=== PATIENT | male | born 1960 | race Caucasian/White ===

== ENCOUNTER 2020-03-06 14:12 | Outpatient (CLI) | payer OTHER, SELFPAY | END 2020-03-06 14:13 | disposition home or self-care (01) | LOC: WOUND 14:20 | PROVIDERS: Visit Provider Thoracic Surgery (Cardiothoracic Vascular Surgery) | DX: N30.40 Irradiation cystitis without hematuria (principal); Y84.2 Radiological procedure and radiotherapy as the cause of abnormal reaction of the patient, or of later complication, without mention of misadventure at the time of the procedure; Y92.9 Unspecified place or not applicable | CPT/HCPCS: 99212 ==

== ENCOUNTER 2020-03-06 16:01 | Outpatient (CLI) | payer OTHER, SELFPAY ==
--- NOTE | 2020-03-06 16:12 | XR_ITS ---
WS: [id number] CHEST XRAY TECHNIQUE: Portable chest. CLINICAL INFORMATION: ENCOUNTER FOR SCREENING FOR RESPIRATORY DISORDERS COMPARISON: None. FINDINGS: Heart: Normal cardiac silhouette. Lungs: Lungs are clear. No consolidation or pleural effusion. No evidence of bulla formation. Bones: Normal visualized bony structures. XR/XR chest 1V [id number] IMPRESSION: Lungs are well aerated. No evidence of bulla formation.
--- NOTE | 2020-03-06 17:09 | ECG_ITS ---
[facility] Test Date: 2020-03-06 Pat Name: Gregor Viveros Department: Room: Gender: Male Campus Aide: : 1960 Requested By: Juvencio Royal Order Number: [id number] Berny MD: Elvia Mendoza M.D. Measurements Intervals [place] Rate: 58 P: 39 DC: 145 QRS: 18 QRSD: 91 T: 40 QT: 405 QTc: 398 Interpretive Statements SINUS BRADYCARDIA No previous ECG available for comparison Electronically Signed On 03-06-2020 20:24:44 [employer] PROVIDER by Elvia Mendoza M.D. [email or web address]
== END 2020-03-06 16:02 | disposition home or self-care (01) ==
LOC: RAD 16:08
PROVIDERS: Visit Provider Thoracic Surgery (Cardiothoracic Vascular Surgery)
DX: Z13.6 Encounter for screening for cardiovascular disorders (principal); Z13.83 Encounter for screening for respiratory disorder NEC
CPT/HCPCS: 71045; 93005

== ENCOUNTER 2020-03-08 13:06 | Outpatient (CLI) | payer OTHER, SELFPAY | END 2020-03-08 13:07 | disposition home or self-care (01) | LOC: WOUND 13:07 | PROVIDERS: Visit Provider Thoracic Surgery (Cardiothoracic Vascular Surgery) | DX: N30.80 Other cystitis without hematuria (principal) | CPT/HCPCS: G0277 ==

== ENCOUNTER 2020-03-09 13:05 | Outpatient (CLI) | payer OTHER, SELFPAY | END 2020-03-09 13:06 | disposition home or self-care (01) | LOC: WOUND 13:06 | PROVIDERS: Visit Provider Thoracic Surgery (Cardiothoracic Vascular Surgery) | DX: N30.41 Irradiation cystitis with hematuria (principal) | CPT/HCPCS: G0277 ==

== ENCOUNTER 2020-03-10 13:00 | Outpatient (CLI) | payer OTHER, SELFPAY | END 2020-03-10 13:01 | disposition home or self-care (01) | LOC: WOUND 13:00 | PROVIDERS: Visit Provider Surgery | DX: N30.41 Irradiation cystitis with hematuria (principal) | CPT/HCPCS: G0277 ==

== ENCOUNTER 2020-03-13 13:02 | Outpatient (CLI) | payer OTHER, SELFPAY | END 2020-03-13 13:03 | disposition home or self-care (01) | LOC: WOUND 13:02 | PROVIDERS: Visit Provider Nurse Practitioner Family | DX: N30.41 Irradiation cystitis with hematuria (principal) | CPT/HCPCS: G0277 ==

== ENCOUNTER 2020-03-14 13:05 | Outpatient (CLI) | payer OTHER, SELFPAY | END 2020-03-14 13:06 | disposition home or self-care (01) | LOC: WOUND 13:05 | PROVIDERS: Visit Provider Thoracic Surgery (Cardiothoracic Vascular Surgery) | DX: N30.41 Irradiation cystitis with hematuria (principal) | CPT/HCPCS: G0277 ==

== ENCOUNTER 2020-03-15 13:00 | Outpatient (CLI) | payer OTHER, SELFPAY | END 2020-03-15 13:01 | disposition home or self-care (01) | LOC: WOUND 13:02 | PROVIDERS: Visit Provider Thoracic Surgery (Cardiothoracic Vascular Surgery) | DX: N30.41 Irradiation cystitis with hematuria (principal) | CPT/HCPCS: G0277 ==

== ENCOUNTER 2020-03-16 13:01 | Outpatient (CLI) | payer OTHER, SELFPAY | END 2020-03-16 13:02 | disposition home or self-care (01) | LOC: WOUND 13:02 | PROVIDERS: Visit Provider Thoracic Surgery (Cardiothoracic Vascular Surgery) | DX: N30.41 Irradiation cystitis with hematuria (principal) | CPT/HCPCS: G0277 ==

== ENCOUNTER 2020-03-17 13:06 | Outpatient (CLI) | payer OTHER, SELFPAY | END 2020-03-17 13:07 | disposition home or self-care (01) | LOC: WOUND 13:06 | PROVIDERS: Visit Provider Surgery | DX: N30.41 Irradiation cystitis with hematuria (principal) | CPT/HCPCS: G0277 ==

== ENCOUNTER 2020-03-20 13:06 | Outpatient (CLI) | payer OTHER, SELFPAY | END 2020-03-20 13:07 | disposition home or self-care (01) | PROVIDERS: Visit Provider Thoracic Surgery (Cardiothoracic Vascular Surgery) | DX: N30.41 Irradiation cystitis with hematuria (principal) | CPT/HCPCS: G0277 ==

== ENCOUNTER 2020-03-21 12:58 | Outpatient (CLI) | payer OTHER, SELFPAY | END 2020-03-21 12:59 | disposition home or self-care (01) | LOC: WOUND 12:58 | PROVIDERS: Visit Provider Thoracic Surgery (Cardiothoracic Vascular Surgery) | DX: N30.41 Irradiation cystitis with hematuria (principal) | CPT/HCPCS: G0277 ==

== ENCOUNTER 2020-03-22 13:05 | Outpatient (CLI) | payer OTHER, SELFPAY | END 2020-03-22 13:06 | disposition home or self-care (01) | LOC: WOUND 13:05 | PROVIDERS: Visit Provider Thoracic Surgery (Cardiothoracic Vascular Surgery) | DX: N30.41 Irradiation cystitis with hematuria (principal) | CPT/HCPCS: G0277 ==

== ENCOUNTER 2020-03-23 13:00 | Outpatient (CLI) | payer OTHER, SELFPAY | END 2020-03-23 13:01 | disposition home or self-care (01) | LOC: WOUND 13:01 | PROVIDERS: Visit Provider Thoracic Surgery (Cardiothoracic Vascular Surgery) | DX: N30.41 Irradiation cystitis with hematuria (principal) | CPT/HCPCS: G0277 ==

== ENCOUNTER 2020-03-24 13:12 | Outpatient (CLI) | payer OTHER, SELFPAY | END 2020-03-24 13:13 | disposition home or self-care (01) | LOC: WOUND 13:12 | PROVIDERS: Visit Provider Surgery | DX: N30.41 Irradiation cystitis with hematuria (principal) | CPT/HCPCS: G0277 ==

== ENCOUNTER 2020-03-28 13:02 | Outpatient (CLI) | payer OTHER, SELFPAY | END 2020-03-28 13:03 | disposition home or self-care (01) | LOC: WOUND 13:02 | PROVIDERS: Visit Provider Thoracic Surgery (Cardiothoracic Vascular Surgery) | DX: N30.41 Irradiation cystitis with hematuria (principal) | CPT/HCPCS: G0277 ==

== ENCOUNTER 2020-03-29 13:15 | Outpatient (CLI) | payer OTHER, SELFPAY | END 2020-03-29 13:16 | disposition home or self-care (01) | LOC: WOUND 13:16 | PROVIDERS: Visit Provider Thoracic Surgery (Cardiothoracic Vascular Surgery) | DX: N30.41 Irradiation cystitis with hematuria (principal) | CPT/HCPCS: G0277 ==

== ENCOUNTER 2020-03-30 13:11 | Outpatient (CLI) | payer OTHER, SELFPAY | END 2020-03-30 13:12 | disposition home or self-care (01) | LOC: WOUND 13:11 | PROVIDERS: Visit Provider Nurse Practitioner Family | DX: N30.41 Irradiation cystitis with hematuria (principal) | CPT/HCPCS: G0277 ==

== ENCOUNTER 2020-03-31 13:02 | Outpatient (CLI) | payer OTHER, SELFPAY | END 2020-03-31 13:03 | disposition home or self-care (01) | LOC: WOUND 13:02 | PROVIDERS: Visit Provider Surgery | DX: N30.41 Irradiation cystitis with hematuria (principal) | CPT/HCPCS: G0277 ==

== ENCOUNTER 2020-04-03 13:01 | Outpatient (CLI) | payer OTHER, SELFPAY | END 2020-04-03 13:02 | disposition home or self-care (01) | LOC: WOUND 13:01 | PROVIDERS: Visit Provider Nurse Practitioner Family | DX: N30.41 Irradiation cystitis with hematuria (principal) | CPT/HCPCS: G0277 ==

== ENCOUNTER 2020-04-04 13:04 | Outpatient (CLI) | payer OTHER, SELFPAY | END 2020-04-04 13:05 | disposition home or self-care (01) | PROVIDERS: Visit Provider Thoracic Surgery (Cardiothoracic Vascular Surgery) | DX: N30.41 Irradiation cystitis with hematuria (principal) | CPT/HCPCS: G0277 ==

== ENCOUNTER 2020-04-06 13:09 | Outpatient (CLI) | payer OTHER, SELFPAY | END 2020-04-06 13:10 | disposition home or self-care (01) | LOC: WOUND 13:09 | PROVIDERS: Visit Provider Nurse Practitioner Family | DX: N30.41 Irradiation cystitis with hematuria (principal) | CPT/HCPCS: G0277 ==

== ENCOUNTER 2020-04-07 13:00 | Outpatient (CLI) | payer OTHER, SELFPAY | END 2020-04-07 13:01 | disposition home or self-care (01) | LOC: WOUND 13:01 | PROVIDERS: Visit Provider Surgery | DX: N30.41 Irradiation cystitis with hematuria (principal) | CPT/HCPCS: G0277 ==

== ENCOUNTER 2020-04-11 13:06 | Outpatient (CLI) | payer OTHER, SELFPAY | END 2020-04-11 13:07 | disposition home or self-care (01) | LOC: WOUND 13:07 | PROVIDERS: Visit Provider Thoracic Surgery (Cardiothoracic Vascular Surgery) | DX: N30.41 Irradiation cystitis with hematuria (principal) | CPT/HCPCS: G0277 ==

== ENCOUNTER 2020-04-13 13:06 | Outpatient (CLI) | payer OTHER, SELFPAY | END 2020-04-13 13:07 | disposition home or self-care (01) | LOC: WOUND 13:08 | PROVIDERS: Visit Provider Nurse Practitioner Family | DX: N30.41 Irradiation cystitis with hematuria (principal) | CPT/HCPCS: G0277 ==

== ENCOUNTER 2020-04-14 13:03 | Outpatient (CLI) | payer OTHER, SELFPAY | END 2020-04-14 13:04 | disposition home or self-care (01) | LOC: WOUND 13:04 | PROVIDERS: Visit Provider Surgery | DX: N30.41 Irradiation cystitis with hematuria (principal) | CPT/HCPCS: G0277 ==

== ENCOUNTER 2020-04-18 13:08 | Outpatient (CLI) | payer OTHER, SELFPAY | END 2020-04-18 13:09 | disposition home or self-care (01) | LOC: WOUND 13:08 | PROVIDERS: Visit Provider Nurse Practitioner Family | DX: N30.41 Irradiation cystitis with hematuria (principal) | CPT/HCPCS: G0277 ==

== ENCOUNTER 2020-04-19 13:13 | Outpatient (CLI) | payer OTHER, SELFPAY | END 2020-04-19 13:14 | disposition home or self-care (01) | LOC: WOUND 13:14 | PROVIDERS: Visit Provider Thoracic Surgery (Cardiothoracic Vascular Surgery) | DX: N30.41 Irradiation cystitis with hematuria (principal) | CPT/HCPCS: G0277 ==

== ENCOUNTER 2020-04-20 13:03 | Outpatient (CLI) | payer OTHER, SELFPAY | END 2020-04-20 13:04 | disposition home or self-care (01) | LOC: WOUND 13:03 | PROVIDERS: Visit Provider Thoracic Surgery (Cardiothoracic Vascular Surgery) | DX: N30.41 Irradiation cystitis with hematuria (principal) | CPT/HCPCS: G0277 ==

== ENCOUNTER 2020-04-21 13:10 | Outpatient (CLI) | payer OTHER, SELFPAY | END 2020-04-21 13:11 | disposition home or self-care (01) | LOC: WOUND 13:11 | PROVIDERS: Visit Provider Surgery | DX: N30.41 Irradiation cystitis with hematuria (principal) | CPT/HCPCS: G0277 ==

== ENCOUNTER 2020-04-24 13:04 | Outpatient (CLI) | payer OTHER, SELFPAY | END 2020-04-24 13:05 | disposition home or self-care (01) | LOC: WOUND 13:05 | PROVIDERS: Visit Provider Nurse Practitioner Family | DX: N30.41 Irradiation cystitis with hematuria (principal) | CPT/HCPCS: G0277 ==

== ENCOUNTER 2020-04-25 10:59 | Outpatient (CLI) | payer OTHER, SELFPAY | END 2020-04-25 11:00 | disposition home or self-care (01) | LOC: WOUND 10:59 | PROVIDERS: Visit Provider Thoracic Surgery (Cardiothoracic Vascular Surgery) | DX: N30.41 Irradiation cystitis with hematuria (principal) | CPT/HCPCS: G0277 ==

== ENCOUNTER 2020-04-26 13:02 | Outpatient (CLI) | payer OTHER, SELFPAY | END 2020-04-26 13:03 | disposition home or self-care (01) | LOC: WOUND 13:03 | PROVIDERS: Visit Provider Thoracic Surgery (Cardiothoracic Vascular Surgery) | DX: N30.41 Irradiation cystitis with hematuria (principal) | CPT/HCPCS: G0277 ==

== ENCOUNTER 2020-04-27 13:06 | Outpatient (CLI) | payer OTHER, SELFPAY | END 2020-04-27 13:07 | disposition home or self-care (01) | LOC: WOUND 13:06 | PROVIDERS: Visit Provider Thoracic Surgery (Cardiothoracic Vascular Surgery) | DX: N30.41 Irradiation cystitis with hematuria (principal) | CPT/HCPCS: G0277 ==

== ENCOUNTER 2020-04-28 13:13 | Outpatient (CLI) | payer OTHER, SELFPAY | END 2020-04-28 13:14 | disposition home or self-care (01) | LOC: WOUND 13:15 | PROVIDERS: Visit Provider Surgery | DX: N30.41 Irradiation cystitis with hematuria (principal) | CPT/HCPCS: G0277 ==

== ENCOUNTER 2020-05-01 13:03 | Outpatient (CLI) | payer OTHER, SELFPAY | END 2020-05-01 13:04 | disposition home or self-care (01) | LOC: WOUND 13:03 | PROVIDERS: Visit Provider Thoracic Surgery (Cardiothoracic Vascular Surgery) | DX: N30.41 Irradiation cystitis with hematuria (principal) | CPT/HCPCS: G0277 ==

== ENCOUNTER 2020-05-02 13:02 | Outpatient (CLI) | payer OTHER, SELFPAY | END 2020-05-02 13:03 | disposition home or self-care (01) | LOC: WOUND 13:03 | PROVIDERS: Visit Provider Thoracic Surgery (Cardiothoracic Vascular Surgery) | DX: N30.41 Irradiation cystitis with hematuria (principal) | CPT/HCPCS: G0277 ==

== ENCOUNTER 2020-05-03 13:07 | Outpatient (CLI) | payer OTHER, SELFPAY | END 2020-05-03 13:08 | disposition home or self-care (01) | LOC: WOUND 13:07 | PROVIDERS: Visit Provider Thoracic Surgery (Cardiothoracic Vascular Surgery) | DX: N30.41 Irradiation cystitis with hematuria (principal) | CPT/HCPCS: G0277 ==

== ENCOUNTER 2020-05-04 13:11 | Outpatient (CLI) | payer OTHER, SELFPAY | END 2020-05-04 13:12 | disposition home or self-care (01) | LOC: WOUND 13:12 | PROVIDERS: Visit Provider Thoracic Surgery (Cardiothoracic Vascular Surgery) | DX: N30.41 Irradiation cystitis with hematuria (principal) | CPT/HCPCS: G0277 ==

== ENCOUNTER 2020-05-09 13:41 | Outpatient (CLI) | payer OTHER, SELFPAY | END 2020-05-09 13:42 | disposition home or self-care (01) | LOC: WOUND 13:42 | PROVIDERS: Visit Provider Thoracic Surgery (Cardiothoracic Vascular Surgery) | DX: N30.41 Irradiation cystitis with hematuria (principal) | CPT/HCPCS: G0277 ==

== ENCOUNTER 2020-05-11 13:06 | Outpatient (CLI) | payer OTHER, SELFPAY | END 2020-05-11 13:07 | disposition home or self-care (01) | PROVIDERS: Visit Provider Thoracic Surgery (Cardiothoracic Vascular Surgery) | DX: N30.41 Irradiation cystitis with hematuria (principal) | CPT/HCPCS: G0277 ==

== ENCOUNTER 2020-05-12 13:16 | Outpatient (CLI) | payer OTHER, SELFPAY | END 2020-05-12 13:17 | disposition home or self-care (01) | LOC: WOUND 13:18 | PROVIDERS: Visit Provider Nurse Practitioner Family | DX: N30.41 Irradiation cystitis with hematuria (principal) | CPT/HCPCS: G0277 ==

== ENCOUNTER 2020-05-15 13:05 | Outpatient (CLI) | payer OTHER, SELFPAY | END 2020-05-15 13:06 | disposition home or self-care (01) | LOC: WOUND 13:06 | PROVIDERS: Visit Provider Nurse Practitioner Family | DX: N30.41 Irradiation cystitis with hematuria (principal) | CPT/HCPCS: G0277 ==

== ENCOUNTER 2020-05-17 13:15 | Outpatient (CLI) | payer OTHER, SELFPAY | END 2020-05-17 13:16 | disposition home or self-care (01) | LOC: WOUND 13:16 | PROVIDERS: Visit Provider Thoracic Surgery (Cardiothoracic Vascular Surgery) | DX: N30.41 Irradiation cystitis with hematuria (principal) | CPT/HCPCS: G0277 ==

== ENCOUNTER 2020-05-18 13:06 | Outpatient (CLI) | payer OTHER, SELFPAY | END 2020-05-18 13:07 | disposition home or self-care (01) | LOC: WOUND 13:07 | PROVIDERS: Visit Provider Thoracic Surgery (Cardiothoracic Vascular Surgery) | DX: N30.41 Irradiation cystitis with hematuria (principal) | CPT/HCPCS: G0277 ==

== ENCOUNTER 2020-05-19 13:08 | Outpatient (CLI) | payer OTHER, SELFPAY | END 2020-05-19 13:09 | disposition home or self-care (01) | LOC: WOUND 13:08 | PROVIDERS: Visit Provider Surgery | DX: N30.41 Irradiation cystitis with hematuria (principal) | CPT/HCPCS: G0277 ==

== ENCOUNTER 2020-05-22 13:10 | Outpatient (CLI) | payer OTHER, SELFPAY | END 2020-05-22 13:11 | disposition home or self-care (01) | LOC: WOUND 13:11 | PROVIDERS: Visit Provider Nurse Practitioner Family | DX: N30.01 Acute cystitis with hematuria (principal) | CPT/HCPCS: G0277 ==

== ENCOUNTER 2020-05-23 12:57 | Outpatient (CLI) | payer OTHER, SELFPAY | END 2020-05-23 12:58 | disposition home or self-care (01) | LOC: WOUND 12:58 | PROVIDERS: Visit Provider Thoracic Surgery (Cardiothoracic Vascular Surgery) | DX: N30.01 Acute cystitis with hematuria (principal) | CPT/HCPCS: G0277 ==

== ENCOUNTER 2020-05-25 13:14 | Outpatient (CLI) | payer OTHER, SELFPAY | END 2020-05-25 13:15 | disposition home or self-care (01) | LOC: WOUND 13:18 | PROVIDERS: Visit Provider Thoracic Surgery (Cardiothoracic Vascular Surgery) | DX: N30.01 Acute cystitis with hematuria (principal) | CPT/HCPCS: G0277 ==

== ENCOUNTER 2020-05-26 13:14 | Outpatient (CLI) | payer OTHER, SELFPAY | END 2020-05-26 13:15 | disposition home or self-care (01) | LOC: WOUND 13:15 | PROVIDERS: Visit Provider Surgery | DX: N30.01 Acute cystitis with hematuria (principal) | CPT/HCPCS: G0277 ==

== ENCOUNTER 2020-05-29 13:03 | Outpatient (CLI) | payer OTHER, SELFPAY | END 2020-05-29 13:04 | disposition home or self-care (01) | LOC: WOUND 13:04 | PROVIDERS: Visit Provider Nurse Practitioner Family | DX: N30.01 Acute cystitis with hematuria (principal) | CPT/HCPCS: G0277 ==

== ENCOUNTER 2020-05-30 13:00 | Outpatient (CLI) | payer OTHER, SELFPAY | END 2020-05-30 13:01 | disposition home or self-care (01) | LOC: WOUND 13:01 | PROVIDERS: Visit Provider Thoracic Surgery (Cardiothoracic Vascular Surgery) | DX: N30.01 Acute cystitis with hematuria (principal) | CPT/HCPCS: G0277 ==

== ENCOUNTER 2020-05-31 13:13 | Outpatient (CLI) | payer OTHER, SELFPAY | END 2020-05-31 13:14 | disposition home or self-care (01) | LOC: WOUND 13:13 | PROVIDERS: Visit Provider Thoracic Surgery (Cardiothoracic Vascular Surgery) | DX: N30.01 Acute cystitis with hematuria (principal) | CPT/HCPCS: G0277 ==

== ENCOUNTER 2020-06-01 13:00 | Outpatient (CLI) | payer OTHER, SELFPAY | END 2020-06-01 13:01 | disposition home or self-care (01) | LOC: WOUND 13:01 | PROVIDERS: Visit Provider Thoracic Surgery (Cardiothoracic Vascular Surgery) | DX: N30.01 Acute cystitis with hematuria (principal) | CPT/HCPCS: G0277 ==

== ENCOUNTER 2020-06-02 13:04 | Outpatient (CLI) | payer OTHER, SELFPAY | END 2020-06-02 13:05 | disposition home or self-care (01) | LOC: WOUND 13:05 | PROVIDERS: Visit Provider Surgery | DX: N30.01 Acute cystitis with hematuria (principal) | CPT/HCPCS: G0277 ==

== ENCOUNTER 2020-06-05 13:25 | Outpatient (CLI) | payer OTHER, SELFPAY | END 2020-06-05 13:26 | disposition home or self-care (01) | LOC: WOUND 13:26 | PROVIDERS: Visit Provider Nurse Practitioner Family | DX: N30.01 Acute cystitis with hematuria (principal) | CPT/HCPCS: G0277 ==

== ENCOUNTER 2020-06-07 13:11 | Outpatient (CLI) | payer OTHER, SELFPAY | END 2020-06-07 13:12 | disposition home or self-care (01) | LOC: WOUND 13:12 | PROVIDERS: Visit Provider Nurse Practitioner Family | DX: N30.01 Acute cystitis with hematuria (principal) | CPT/HCPCS: G0277 ==

== ENCOUNTER 2020-06-08 13:08 | Outpatient (CLI) | payer OTHER, SELFPAY | END 2020-06-08 13:09 | disposition home or self-care (01) | LOC: WOUND 13:09 | PROVIDERS: Visit Provider Thoracic Surgery (Cardiothoracic Vascular Surgery) | DX: N30.01 Acute cystitis with hematuria (principal) | CPT/HCPCS: G0277 ==

== ENCOUNTER 2020-06-09 13:06 | Outpatient (CLI) | payer OTHER, SELFPAY | END 2020-06-09 13:07 | disposition home or self-care (01) | LOC: WOUND 13:07 | PROVIDERS: Visit Provider Surgery | DX: N30.01 Acute cystitis with hematuria (principal) | CPT/HCPCS: G0277 ==

== ENCOUNTER 2020-06-12 13:01 | Outpatient (CLI) | payer OTHER, SELFPAY | END 2020-06-12 13:02 | disposition home or self-care (01) | LOC: WOUND 13:01 | PROVIDERS: Visit Provider Nurse Practitioner Family | DX: N30.01 Acute cystitis with hematuria (principal) | CPT/HCPCS: G0277 ==